=== PATIENT | female | born 1995 | race Native Hawaiian/Other Pacific Islander ===

== ENCOUNTER 2021-10-08 12:27 | Outpatient (CLI) | payer BC ==
[2021-10-08 13:10] LABS: PLATELET COUNT 214 K/uL (152-353)
[2021-10-08 13:47] LABS: POTASSIUM 4.7 mmol/L (3.6-5.2)
== END 2021-10-08 19:23 | disposition home or self-care (01) ==
LOC: LABW 12:27
PROVIDERS: ATTEND Nurse Practitioner Family
DX: R00.2 Palpitations (principal)
CPT/HCPCS: 36415; 80053; 84439; 84443; 84481; 85027; 86800; 93005; 93225

== ENCOUNTER 2021-11-10 11:02 | Outpatient (CLI) | payer BC | END 2021-11-10 19:02 | disposition home or self-care (01) | LOC: RESP 11:02 | PROVIDERS: ATTEND Nurse Practitioner Family | DX: R00.2 Palpitations (principal) ==